=== PATIENT | male | born 1995 | race Two or more races ===

== ENCOUNTER 2017-11-12 10:10 | Emergency (ER) | payer OTHER, BC, SELFPAY | END 2017-11-12 11:10 | disposition home or self-care (01) | LOC: M ED 10:10 | DX: S99.911A Unspecified injury of right ankle, initial encounter (principal); X50.0XXA Overexertion from strenuous movement or load, initial encounter; Y92.59 Other trade areas as the place of occurrence of the external cause; Y99.0 Civilian activity done for income or pay | CPT/HCPCS: 73610 ==

== ENCOUNTER → 2017-11-18 | Outpatient (CLI) | payer BC | LOC: M LRY 19:48 | DX: M79.671 Pain in right foot (principal) | CPT/HCPCS: 73630 ==

== ENCOUNTER → 2017-11-18 | Outpatient (CLI) | payer BC, OTHER | LOC: M CLY 19:30 | DX: M79.671 Pain in right foot (principal) ==